=== PATIENT | female | born 1955 | race Hispanic/Latino ===

== ENCOUNTER → 2021-05-24 | Day surgery (SDC) | payer BC ==
[~2021-05-24] MED LIST: ASPIRIN CHEW81 MG PO; DIALYVITE 8001 EAC1 PO; FUROSEMIDE40 MG PO; LISINOPRIL-HCT1 EAC1 PO; RENVELA800 MG PO; SODIUM CHLORIDE 0.9% 500ML 500 ML ONE; VITAMIN C500 MG PO
[2021-05-24 08:00] VITALS: BP 166/68
== END | disposition home or self-care (01) ==
LOC: OR 05:44 → EDBD 07:30
PROVIDERS: ATTEND Internal Medicine Gastroenterology
DX: Z12.11 Encounter for screening for malignant neoplasm of colon (principal); K64.8 Other hemorrhoids; Z71.3 Dietary counseling and surveillance; E66.3 Overweight; E11.22 Type 2 diabetes mellitus with diabetic chronic kidney disease; I12.0 Hypertensive chronic kidney disease with stage 5 chronic kidney disease or end stage renal disease; N18.6 End stage renal disease; Z01.812 Encounter for preprocedural laboratory examination; Z20.822 Contact with and (suspected) exposure to COVID-19; Z79.82 Long term (current) use of aspirin; Z79.899 Other long term (current) drug therapy; Z99.2 Dependence on renal dialysis; Z68.28 Body mass index [BMI] 28.0-28.9, adult
CPT/HCPCS: 36415; 45378; 82948; 84132; J7040; U0002